=== PATIENT | female | born 1990 | race Caucasian/White ===

== ENCOUNTER → 2016-05-28 | Outpatient (CLI) | payer BC ==
[2016-05-28 19:19] LABS: BASO % 0.1 % (0.0-1.0); EOS % 0.9 % (0.0-3.0); LARGE UNSTAINED CELL # 0.1 K/mm3 (0.0-0.4); LARGE UNSTAINED CELL % 0.9 % (0.0-4.0); LYMPH # 1.3 K/mm3 (1.5-6.5); MEAN CORPUSCULAR HEMOGLOBIN 31.1 pg (27.0-33.0); MEAN CORPUSCULAR VOLUME 86.4 fl (80.0-96.0); MONO # 0.3 K/mm3 (0.0-0.8); MONO % 5.5 % (0.0-5.0); NEUTROPHILS # 4.1 K/mm3 (1.8-7.7); NEUTROPHILS % 70.5 % (36.0-66.0); PLATELET COUNT, AUTOMATED 279 k/mm3 (150-450); RED CELL DISTRIBUTION WIDTH 11.1 % (11.5-14.5); WHITE BLOOD COUNT 5.8 K/mm3 (4.0-10.0)
[2016-05-29 15:24] LABS: HIV SCRN NEGATIVE (NEGATIVE); HIV SCRN1 NEGATIVE (NEGATIVE)
[2016-05-29 15:25] LABS: CONTROL LINE INT CTR LINE PRESENT
[2016-05-30 10:51] LABS: HBsAg Prenatal NEGATIVE (NEGATIVE)
== END ==
LOC: M LAB 15:48
PROVIDERS: ATTEND Advanced Practice Midwife
DX: Z34.81 Encounter for supervision of other normal pregnancy, first trimester (principal)

== ENCOUNTER → 2016-08-15 | Outpatient (CLI) | payer BC ==
--- NOTE | 2016-08-15 21:10 | REP ---
Obstetric sonography: History: Supervision of for anatomy. Findings: Scanning through the gravid uterus demonstrates a viable single intrauterine gestation in a breech lie. motion is observed and heart rate is recorded at 133 beats per minute. The placenta is anterior grade 0 without evidence of previa. Amniotic fluid is subjectively normal. Closed cervical length is 3.4 cm. There is a 2.1 cm cystic area in the maternal right ovary consistent with corpus luteum. No anomaly is seen. Less than optimal visualization of the cranium, right ventricular cardiac outflow tract, kidneys, spine, and lower extremities was achieved because of position. The following additional anatomic structures are identified and felt to be sonographically unremarkable: Choroid plexus, cavum, cerebellum and posterior fossa, face and profile, lungs, four-chamber heart with left ventricular outflow tract view, diaphragm, left-sided stomach, abdominal wall cord insertion, three-vessel umbilical cord, bladder, upper extremities. Biometry chart: BPD 4.3 cm = 19 weeks 0 days HC 16.1 cm = 19 weeks 0 days AC 12.7 cm = 18 weeks 2 days FL 3.0 cm = 19 weeks 1 day HL 2.6 cm = 18 weeks 1 day HC/AC ratio 1.27 (1.07-1.26. Cephalic index normal 0.74. Estimated weight 254 grams, 0 pounds 8 ounces, 63rd percentile for 18 weeks 2 days. Impression: Viable single intrauterine gestation 18 weeks 5 days by today's composite sonographic criteria. ARMAND by today's sonography January 11, 2017. anatomic survey less than complete as above. Signed by Chip Davis MD 08/16/2016 07:53 A
== END ==
LOC: M RAD 16:43
PROVIDERS: ATTEND Advanced Practice Midwife
DX: Z34.82 Encounter for supervision of other normal pregnancy, second trimester (principal)

== ENCOUNTER → 2016-09-01 | Outpatient (CLI) | payer BC ==
--- NOTE | 2016-09-02 04:42 | REP ---
Clinical: Anatomical evaluation. Comparison: 08/15/2016 . Findings: Examination demonstrates a single live intrauterine in breech presentation. motion is identified by technologist. Placenta is noted anteriorly and grade zero without evidence for placenta previa or abruption. Amniotic fluid volume is normal. Cervix measures 3.3 cm in length and appears closed. No evidence for nuchal cord. Anterior intramural fibroid measures 2.9 cm maximal diameter and lower uterine segment fibroid measures 6.2 cm maximal diameter. Gestational age by LMP 20 weeks 5 days with ARMAND 01/14/2017 . Gestational age by current measurements 21 weeks 4 days with ARMAND 01/08/2017 . FHR equals 136 beats per minute. BPD 5.1 cm 21 weeks 3 days HC 18.3 cm 20 weeks 4 days AC 17.1 cm 22 weeks 1 day FL 3.9 cm 22 weeks 3 days HL 3.4 cm 21 weeks 4 days HC/AC ratio 1.07 Estimated weight 472 grams ( 96th percentile). Anatomical assessment demonstrates normal structures including cranium, choroid plexus, cavum, cerebellum/posterior fossa, lungs, diaphragm, stomach, cord insertion/three-vessel cord, kidneys/bladder, spine, and extremities. Impression: 1. Single live intrauterine in breech presentation. 2. Appropriate interval growth. 3. In conjunction with prior examination anatomical assessment is complete and normal. 4. Two fibroids as described above. Signed by Yoan West MD 09/02/2016 04:34 A
== END ==
LOC: M RAD 17:09
PROVIDERS: ATTEND Advanced Practice Midwife
DX: Z34.82 Encounter for supervision of other normal pregnancy, second trimester (principal)

== ENCOUNTER → 2016-10-15 | Outpatient (CLI) | payer BC ==
[2016-10-15 18:10] LABS: BASO % 0.1 % (0.0-1.0); EOS % 0.4 % (0.0-3.0); LARGE UNSTAINED CELL # 0.1 K/mm3 (0.0-0.4); LARGE UNSTAINED CELL % 1.3 % (0.0-4.0); LYMPH # 1.3 K/mm3 (1.5-6.5); LYMPH % 13.6 % (24.0-44.0); MEAN CORPUSCULAR HEMOGLOBIN 31.4 pg (27.0-33.0); MEAN CORPUSCULAR HGB CONC 34.7 g/dl (32.0-36.5); MEAN CORPUSCULAR VOLUME 90.5 fl (80.0-96.0); MONO # 0.4 K/mm3 (0.0-0.8); MONO % 5.1 % (0.0-5.0); NEUTROPHILS # 6.6 K/mm3 (1.8-7.7); NEUTROPHILS % 79.5 % (36.0-66.0); PLATELET COUNT, AUTOMATED 255 k/mm3 (150-450); RED CELL DISTRIBUTION WIDTH 12.2 % (11.5-14.5); WHITE BLOOD COUNT 8.4 K/mm3 (4.0-10.0)
== END ==
LOC: M LAB 15:10
PROVIDERS: ATTEND Specialist
DX: Z34.82 Encounter for supervision of other normal pregnancy, second trimester (principal)
CPT/HCPCS: 36415; 82950; 85025; 86850; J2790

== ENCOUNTER → 2016-12-18 | Outpatient (REF) | payer BC ==
[~2016-12-18] MED LIST: COLA100C5 PO; MILKSUS PO; MOTR200T44 PO; PRENTAB9 PO; TUMS500C PO; TYLE500T78 PO
== END ==
LOC: M LAB REF 17:22
PROVIDERS: ATTEND Advanced Practice Midwife
DX: Z34.83 Encounter for supervision of other normal pregnancy, third trimester (principal)

== ENCOUNTER 2017-01-02 16:48 | Inpatient (IN) | payer BC ==
[~2017-01-02] VITALS: Ht 167.6 cm; Wt 78.0 kg
[2017-01-02] MEDS ORDERED: PRENTAB9 PO (17:23)
[2017-01-02] MEDS ORDERED: TUMS500C PO (17:23)
[2017-01-02 17:25] VITALS: BP 138/81
[2017-01-02 17:38] LABS: MEAN CORPUSCULAR HEMOGLOBIN 30.3 pg (27.0-33.0); MEAN CORPUSCULAR HGB CONC 35.4 g/dl (32.0-36.5); MEAN CORPUSCULAR VOLUME 85.5 fl (80.0-96.0); RED CELL DISTRIBUTION WIDTH 12.9 % (11.5-14.5); WHITE BLOOD COUNT 8.2 K/mm3 (4.0-10.0)
[2017-01-02] MEDS: miSOPROStol 50 MCG 1/2 TAB (S0191) PO SCH ×2 (19:50→23:59)
[2017-01-02 19:52] VITALS: BP 126/74
[2017-01-02 21:22] VITALS: BP 120/67
--- NOTE | 2017-01-02 23:48 | HPE ---
DATE OF ADMISSION: 01/02/2017 REASON FOR ADMISSION: Premature rupture of membranes. HISTORY OF THE PRESENT ILLNESS: Mrs. Ojeda is a 26-year-old 1 who presents at 38 weeks 2 days estimated gestational age by last menstrual period, confirmed by a first trimester ultrasound, with complaints of leakage of fluid. She reports leakage of fluid initially beginning some time during the day on Thursday and was evaluated in labor and delivery for the complaints that was unfounded. She states that she has continued to leak fluid throughout the last couple of days. This afternoon, she reports needing to change her pad three times as well as change her clothing. Today, in the afternoon, upon evaluation, she was noted to be grossly ruptured. Positive fern, positive nitrate, as well as pooling. Her cervix on exam was long and closed. She was sent to labor and delivery for admission. Her course has been relatively uncomplicated. She had her ultrasound performed in August showing two fibroids that are 2.9 and 6.2 cm in the lower uterine segment, otherwise unremarkable course. PAST MEDICAL HISTORY: None. PAST SURGICAL HISTORY: 1. She has had a left hip acetabular osteotomy at , as well as at age 16. 2. Oral surgery. MEDICATIONS: Includes vitamins. ALLERGIES: She has no known drug allergies. SOCIAL HISTORY: She lives at home with her . Denies any alcohol, tobacco or drug use during her . PHYSICAL EXAMINATION: Vital signs are stable. She is afebrile. She has category 1 heart rate tracing. Rare contractions on tocometer. General appearance is well appearing. No acute distress. Lungs are clear to auscultation bilaterally. Cardiovascular: Heart regular rate and rhythm. Her abdomen is gravid. Estimated weight 3300 grams. Cervical Exam: Her cervix is long and closed. LABORATORY: labs: Her blood type is A negative. Antibody screen is negative. Rubella is immune. RPR is nonreactive. Hepatitis surface antigen is negative. HIV is negative. Hepatitis C is nonreactive. Chlamydia and gonorrhea screens are negative. She had a normal 1-hour Glucola and she is GBS negative. ASSESSMENT: 1. Mrs. Ojeda is a 26-year-old, 1 at 38 weeks 2 days estimated gestational age with premature rupture of membranes. 2. Reassuring status. PLAN: 1. Admit to labor and delivery. CBC, RPR, type and screen. 2. The patient has been counseled in regards to augmentation of labor. I discussed medications as well as procedures performed in labor and delivery. She has also been verbally consented for emergency surgery, blood products, anesthesia and desires to proceed with admission. 3. Will initiate her augmentation with 50 mcg of oral misoprostol.
[2017-01-03] VITALS (25 sets, daily range): BP systolic 102–149; BP diastolic 56–75
[2017-01-03] MEDS ORDERED: BUTORPHANOL 2 MG/ML INJ (J0595) As Ordered ONE (01:42)
[2017-01-03] MEDS ORDERED: PROMETHAZINE INJ 25 MG/ML VIAL (J2550) As Ordered ONE (01:44)
[2017-01-03] MEDS ORDERED: BUTORPHANOL 2 MG/ML INJ (J0595) IV ONE ×2 (01:45→07:45)
[2017-01-03] MEDS ORDERED: PROMETHAZINE INJ 25 MG/ML VIAL (J2550) IV ONE ×2 (01:45→07:45)
[2017-01-03] MEDS ORDERED: LR 1,000 ML IV SCH (02:43)
[2017-01-03] MEDS ORDERED: OXYTOCIN DRIP 30 UNITS in APPROPRIATE DILUENT 1 EA IV SCH ×2 (02:45→13:53)
[2017-01-03] MEDS ORDERED: OXYTOCIN 30 UNITS IN 0.9% NaCl 500ML IV BAG (J2590) As Ordered ONE (06:45)
[2017-01-03] MEDS ORDERED: FENTANYL 2MCG/ML ROPIVACAINE 0.2% IN 0.9% NACL 200ML IVBAG As Ordered ONE (09:48)
[2017-01-03] MEDS ORDERED: ONDANSETRON 4MG/2ML VIAL (J2405) IV PRN (10:30)
[2017-01-03] MEDS ORDERED: diphenhydrAMINE INJ 50MG/ML VIAL (J1200) IV PRN (10:30)
[2017-01-03] MEDS ORDERED: EPIDURAL COMMENT XX SCH (10:30)
[2017-01-03] MEDS ORDERED: EPIDURAL/PCA KEYS XX PRN (10:30)
[2017-01-03] MEDS ORDERED: REFRIGERATOR IV KEYS XX PRN (10:30)
[2017-01-03] MEDS ORDERED: FENTANYL/ROPIVACAINE/NACL BAG 200 ML EPIDURAL SCH (10:30)
[2017-01-03] MEDS ORDERED: NALOXONE INJ 0.4 MG/1 ML VIAL (J2310) IV PRN (10:30)
[2017-01-03] MEDS ORDERED: ePHEDrine SULFATE 25 MG/5 ML(5MG/ML) SYRINGE IV PRN (11:15)
[2017-01-03] MEDS ORDERED: LACTATED RINGER'S 1000 ML IV PRN (11:15)
[2017-01-03 12:37] LABS: CORD GAS ABE A -5.7; CORD GAS HCO3 A 22.4 MEQ/L; CORD GAS O2 SAT A 52.8 %; CORD GAS PCO2 A 52.9 mmHg; CORD GAS PH A 7.244 UNITS; CORD GAS PO2 A 28.1 mmHg; CORD GAS SBC A 18.7 MEQ/L
[2017-01-03 12:39] LABS: CORD GAS ABE V -4.9; CORD GAS HCO3 V 19.7 MEQ/L; CORD GAS O2 SAT V 62.1 %; CORD GAS PCO2 V 35.8 mmHg; CORD GAS PH V 7.358 UNITS; CORD GAS PO2 V 28.9 mmHg; CORD GAS SBC V 19.6 MEQ/L; CORD GAS TCO2 V 20.8 MEQ/L
[2017-01-03] MEDS ORDERED: ANUSOL HC CREAM 30GM TOP PRN (14:00)
[2017-01-03] MEDS ORDERED: METHYLERGONOVINE MALEATE 0.2 MG TAB PO PRN (14:00)
[2017-01-03] MEDS ORDERED: MOM 30ML SUSPENSION UDC PO PRN (14:00)
[2017-01-03] MEDS ORDERED: DIBUCAINE 1% OINTMENT 30GM TOP PRN (14:00)
[2017-01-03] MEDS ORDERED: ACETAMINOPHEN 500 MG TAB PO PRN (14:00)
[2017-01-03] MEDS ORDERED: RHOGAM 300 MCG (1500 IU) INJ (J2790) IM SCH (14:00)
[2017-01-03] MEDS ORDERED: IBUPROFEN 800 MG TAB PO PRN (14:00)
[2017-01-03] MEDS ORDERED: DOCUSATE SODIUM 100 MG CAP PO PRN (14:00)
[2017-01-03] MEDS ORDERED: MEASLES,MUMPS,RUBELLA VACCINE INJ (MMR-II) (90707) SC SCH (14:00)
--- NOTE | 2017-01-03 14:32 | DN ---
DATE: 01/03/2017 TIME OF : 12:16 GENDER: Female. SCORES: 9 and 9. WEIGHT: 3070 grams, 6 pounds and 12 ounces. ESTIMATED BLOOD LOSS: 300 mL. LACERATIONS: 2nd degree midline laceration. ANESTHESIA: Epidural. COUNTS: Five laparotomy sponges accounted for prior to and after delivery. Three sharps were removed from the delivery field. CORD GAS: 7.24, 7.35, base excess -5.7 and -4.9. On 01/03/2017 at 12:16, Mrs. Ojeda is a 26-year-old, 1, now para 1 who had a spontaneous vaginal delivery of a liveborn female . scores of 9 and 9. Weight was 3070 grams or 6 pounds 12 ounces. Head was delivered OA, followed by delivery of right anterior shoulder, left posterior shoulder and corpus. The infant was handed to mother with a good cry. Cord was clamped times two and was cut by the father of the baby under my direction. Cord gas and cord blood were then obtained. Placenta was drained and delivered grossly intact. A premix bag of 500 mL of normal saline and 30 units of Pitocin was boluses, along with uterine massage until the uterus was firm. On inspection there was a 2nd degree midline laceration. This was repaired with #3-0 Vicryl Rapide. On resinspection, the cervix, vagina and perineum were grossly intact and hemostatic. Mother and baby recovering in stable condition. The couple has decided to name their daughter
[2017-01-04 06:40] VITALS: BP 115/55
[2017-01-04] MEDS: PRENATAL VITAMINS CHEWABLE TABLET PO SCH (09:00)
[2017-01-04] MEDS ORDERED: RHOGAM 300 MCG (1500 IU) INJ (J2790) IM SCH (09:00)
[2017-01-04 18:25] VITALS: BP 132/86
[2017-01-05 06:36] VITALS: BP 112/67
[2017-01-05] MEDS ORDERED: COLA100C5 PO (08:27)
[2017-01-05] MEDS ORDERED: MOTR200T44 PO (08:27)
[2017-01-05] MEDS ORDERED: MILKSUS PO (08:27)
[2017-01-05] MEDS ORDERED: TYLE500T78 PO (08:27)
[2017-01-05] MEDS ORDERED: PRENTAB9 PO (08:27)
[2017-01-05] MEDS: PRENATAL VITAMINS CHEWABLE TABLET PO SCH (08:42)
== END 2017-01-05 14:30 | disposition home or self-care (01) | DRG 560 ==
LOC: M LDI 16:48 → M OBS 01-03 14:45
PROVIDERS: ADMIT Obstetrics & Gynecology; ATTEND Obstetrics & Gynecology
PROC: 10E0XZZ Delivery of Products of Conception, External Approach (ICD-10-PCS; principal; 2017-01-03)
PROC: 0KQM0ZZ Repair Perineum Muscle, Open Approach (ICD-10-PCS; 2017-01-03)
PROC: 30233S1 Transfusion of Nonautologous Globulin into Peripheral Vein, Percutaneous Approach (ICD-10-PCS; 2017-01-04)
DX: O34.13 Maternal care for benign tumor of corpus uteri, third trimester (principal); D25.9 Leiomyoma of uterus, unspecified; Z37.0 Single live birth; Z3A.38 38 weeks gestation of pregnancy; O70.1 Second degree perineal laceration during delivery

== ENCOUNTER → 2017-10-26 | Outpatient (CLI) | payer BC ==
[2017-10-26 18:58] LABS: FREE T4 0.92 NG/DL (0.76-1.46); THYROID STIMULATING HORMONE 0.825 uIU/ML (0.358-3.740)
[2017-10-26 19:12] LABS: TOTAL 25(OH) VITAMIN D 23.1 NG/ML (30.0-100.0)
== END ==
LOC: M LAB 17:06
DX: O90.6 Postpartum mood disturbance (principal)
CPT/HCPCS: 84443

== ENCOUNTER → 2018-06-07 | Outpatient (REF) ==
[~2018-06-07] MED LIST changes: +MILK120011 PO; -MILKSUS PO
== END ==
LOC: M EMP 17:21
PROVIDERS: ATTEND Nurse Practitioner Adult Health
DX: Z00.00 Encounter for general adult medical examination without abnormal findings (principal)

== ENCOUNTER → 2021-03-20 | Outpatient (REF) | payer BC | LOC: M LAB REF 16:55 | PROVIDERS: ATTEND Physician Assistant | DX: D22.9 Melanocytic nevi, unspecified (principal) ==

== ENCOUNTER → 2022-02-19 | Outpatient (CLI) | payer BC ==
[~2022-02-19] MED LIST changes: +ISOVUE-300 61% 50ML VIAL As Ordered ONE; +LIDOCAINE 1% MDV 20ML VIAL As Ordered ONE; +methylPREDNISolone SUSP 40MG/ML 1ML VIAL (DEPO MEDROL) As Ordered ONE
== END ==
LOC: M RAD 12:23
PROVIDERS: ATTEND Physician Assistant
DX: M16.12 Unilateral primary osteoarthritis, left hip (principal)
CPT/HCPCS: 76000; J1030; Q9967

== ENCOUNTER → 2022-04-25 | Outpatient (REF) | payer BC ==
[~2022-04-25] MED LIST changes: -ISOVUE-300 61% 50ML VIAL As Ordered ONE; -LIDOCAINE 1% MDV 20ML VIAL As Ordered ONE; -methylPREDNISolone SUSP 40MG/ML 1ML VIAL (DEPO MEDROL) As Ordered ONE
== END ==
LOC: M PLALAB 15:18
PROVIDERS: ATTEND Nurse Practitioner Family
DX: Z12.4 Encounter for screening for malignant neoplasm of cervix (principal)

== ENCOUNTER → 2022-05-29 | Outpatient (CLI) | payer BC | LOC: M WHC 09:03 | PROVIDERS: ATTEND Nurse Practitioner Family | DX: R10.2 Pelvic and perineal pain (principal) ==

== ENCOUNTER → 2023-01-13 | Outpatient (CLI) | payer BC ==
[2023-01-13 10:25] LABS: BASO % 0.4 % (0.0-1.0); EOS # 0.1 10^3/uL (0.0-0.5); EOS % 1.1 % (0.0-3.0); HEMATOCRIT 38.4 % (36.0-47.0); HEMOGLOBIN 12.8 g/dl (12.0-15.5); LYMPH # 1.3 10^3/uL (1.5-5.0); LYMPH % 23.2 % (24.0-44.0); MEAN CORPUSCULAR HEMOGLOBIN 29.7 pg (27.0-33.0); MEAN CORPUSCULAR HGB CONC 33.3 g/dl (32.0-36.5); MEAN CORPUSCULAR VOLUME 89.1 fl (80.0-96.0); MONO # 0.4 10^3/uL (0.0-0.8); MONO % 6.4 % (2.0-8.0); NEUTROPHILS # 3.8 10^3/uL (1.5-8.5); NEUTROPHILS % 68.7 % (36.0-66.0); PLATELET COUNT, AUTOMATED 257 10^3/uL (150-450); RED BLOOD COUNT 4.31 10^6/uL (4.00-5.40); WHITE BLOOD COUNT 5.5 10^3/uL (4.0-10.0)
[2023-01-13 11:00] LABS: ALBUMIN 3.7 G/DL (3.2-5.2); ALKALINE PHOSPHATASE 55 U/L (46-116); ALT/SGPT 23 U/L (7.0-40); AST/SGOT 14 U/L (<34); BILIRUBIN,TOTAL 0.3 MG/DL (0.3-1.2); BLOOD UREA NITROGEN 15 MG/DL (9-23); CALCIUM LEVEL 8.9 MG/DL (8.5-10.1); CARBON DIOXIDE LEVEL 27 MMOL/L (20-31); CHLORIDE LEVEL 107 MMOL/L (98-107); CREATININE FOR GFR 0.64 MG/DL (0.55-1.30); GLOMERULAR FILTRATION RATE > 60.0 (>60); GLUCOSE, FASTING 76 MG/DL (60-100); POTASSIUM SERUM 4.4 MMOL/L (3.5-5.1); SODIUM LEVEL 140 MMOL/L (136-145); TOTAL PROTEIN 6.1 G/DL (5.7-8.2)
== END ==
LOC: M LAB 09:35
PROVIDERS: ATTEND Physician Assistant
DX: Z01.818 Encounter for other preprocedural examination (principal)